=== PATIENT | male | born 1960 | race Caucasian/White ===

== ENCOUNTER 2018-01-01 07:27 | Emergency (ER) | payer OTHER ==
--- NOTE | 2018-01-01 07:50 | C.PDOC ---
History Of Present Illness 57-year-old male, presents to the emergency department with complaints of increasing auditory hallucinations for the past month. Patient states he hasn't taken Seroquel in "many years." He notes that over the past three days, his symptoms have worsened, prompting visit. He denies any suicidal/homicidal ideation. WORSENING AUD HALLUCINATIONS X 3 DAYS. PS INCR FREQ X 1 MO, Time Seen by Provider: 01/01/18 07:40 Chief Complaint (Nursing): Medical Clearance History Per: Patient Current Symptoms Are (Timing): Still Present Severity: Moderate Past Medical History Reviewed: Historical Data, Nursing Documentation, Vital Signs Vital Signs: Last Vital Signs Temp 98.1 F 01/01/18 13:34 Pulse 55 L 01/01/18 13:34 Resp 19 01/01/18 13:34 BP 154/79 H 01/01/18 13:34 Pulse Ox 97 01/01/18 13:34 - Medical History PMH: Depression Family History: States: No Known Family Hx - Social History Hx Tobacco Use: Yes Hx Alcohol Use: Yes Hx Substance Use: No (denies) - Immunization History Hx Tetanus Toxoid Vaccination: No Hx Influenza Vaccination: No Hx Pneumococcal Vaccination: No Review Of Systems Constitutional: Negative for: Fever, Chills Cardiovascular: Negative for: Chest Pain, Palpitations Respiratory: Negative for: Shortness of Breath Neurological: Negative for: Weakness, Headache, Dizziness Psych: Positive for: Other ((+)auditory hallucinations.). Negative for: Anxiety , Depression, Psychosis, Suicidal ideation Physical Exam - Physical Exam Appears: Non-toxic, No Acute Distress Skin: Normal Color, Warm, Dry, No Rash Head: Normacephalic Eye(s): bilateral: PERRL Nose: Normal Oral Mucosa: Moist Lips: Normal Appearing Neck: Normal ROM Cardiovascular: Rhythm Regular, No Murmur Respiratory: Normal Breath Sounds, No Accessory Muscle Use Gastrointestinal/Abdominal: Soft, No Tenderness Extremity: Normal ROM, No Deformity, No Swelling Neurological/Psych: Oriented x3, Normal Speech (No focal deficit) ED Course And Treatment - Laboratory Results Result Diagrams: 01/01/18 09:01 01/01/18 09:01 ECG: Interpreted By Nc ECG Rhythm: Sinus Rhythm ECG Interpretation: Normal Rate From EC O2 Sat by Pulse Oximetry: 98 (RA) Pulse Ox Interpretation: Normal - Radiology CXR: Interpreted by Me CXR Interpretation: Yes: No Acute Disease Progress - Re-Evaluation Re-evaluation Note: 01/01/18 07:50 D/W CRISIS WILL EVAL IN ER 01/01/18 10:22 MED CLEAR FOR PSYCH. EXAM 01/01/18 14:[address] [place] [address] [facility] - Data Reviewed Data Reviewed: Lab, Diagnostic imaging, EKG, Old records Medical Decision Making Medical Decision Making: Impression 57y/o M comes in with worsening auditory hallucinations x3 days Plan: * Crisis evaluation * Reassess and Disposition Disposition Discussed With : alex Counseled Patient/Family Regarding: Studies Performed, Diagnosis - Disposition Disposition: Trans to Other Acute Care Hosp Disposition Time: 14:41 Condition: STABLE Forms: [employer] (Lithuanian) - Clinical Impression Clinical Impression: Schizoaffective disorder - Scribe Statement The provider has reviewed the documentation as recorded by the Scribe (Myron Salmeron) All medical record entries made by the Scribe were at my direction and personally dictated by me. I have reviewed the chart and agree that the record accurately reflects my personal performance of the history, physical exam, medical decision making, and the department course for this patient. I have also personally directed, reviewed, and agree with the discharge instructions and disposition.
[2018-01-01 08:55] LABS: URINE BILIRUBIN NEGATIVE (NEGATIVE); URINE BLOOD NEGATIVE (NEGATIVE); URINE CLARITY Clear (Clear); URINE COLOR Straw (YELLOW); URINE GLUCOSE (UA) NORMAL (Normal); URINE LEUKOCYTE ESTERASE NEG Leu/uL (Negative); URINE PROTEIN NEGATIVE (NEGATIVE); URINE UROBILINOGEN NORMAL mg/dL (0.2-1.0)
[2018-01-01 09:08] LABS: BASO # 0.1 K/uL (0.0-0.2); BASO % 0.7 % (0.0-2.0); EOS # 0.3 K/uL (0.0-0.7); EOS % 3.8 % (0.0-4.0); HEMOGLOBIN 15.2 g/dL (12.0-18.0); LYMPH % 26.3 % (20.0-40.0); MEAN CELL VOLUME 86.5 fL (80.0-94.0); MEAN CORPUSCULAR HEMOGLOBIN 30.3 pg (27.0-31.0); MEAN PLATELET VOLUME 8.7 fL (7.2-11.7); MONO # 0.5 K/uL (0.0-0.8); MONO % 6.3 % (0.0-10.0); NEUT # 4.9 K/uL (1.8-7.0); NEUT % 62.9 % (50.0-75.0); NRBC % 0.1 % (0.0-2.0); RBC 5.01 Mil/uL (4.40-5.90); RED CELL DISTRIBUTION WIDTH 12.7 % (11.5-14.5); WHITE BLOOD COUNT 7.8 K/uL (4.8-10.8)
--- NOTE | 2018-01-01 09:09 | RAD ---
HISTORY: MED CLEAR Detox/Psy COMPARISON: Portable chest 04/15/2014. TECHNIQUE: Chest PA and lateral FINDINGS: LUNGS: No active pulmonary disease. Improved inspiratory volume noted. PLEURA: No significant pleural effusion identified. No pneumothorax apparent. CARDIOVASCULAR: Normal. OSSEOUS STRUCTURES: No significant abnormalities. VISUALIZED UPPER ABDOMEN: Normal. OTHER FINDINGS: None. IMPRESSION: No interval acute cardiopulmonary disease appreciated.
[2018-01-01 09:24] LABS: ALB/GLOB RATIO 1.4 (1.0-2.1); ALBUMIN 4.3 g/dL (3.5-5.0); ALT/SGPT 32 U/L (21-72); AST/SGOT 28 U/L (17-59); BLOOD UREA NITROGEN 15 mg/dL (9-20); CALCIUM 9.6 mg/dl (8.6-10.4); GFR AFRICAN-AMERICAN > 60; GFR NON-AFRICAN AMERICAN > 60
[2018-01-01 09:35] LABS: BARBITURATES, UR NEGATIVE (NEGATIVE); OPIATES, UR NEGATIVE (NEGATIVE); PHENCYCLIDINE, UR NEGATIVE (NEGATIVE)
[2018-01-01 10:21] LABS: BENZODIAZEPINES, UR POSITIVE (NEGATIVE)
[2018-01-01] MEDS ORDERED: Potassium Chloride 20 mEq/15 ml LIQ UD PO STA (14:40)
[2018-01-01 14:42] VITALS: O2SAT 98
[2018-01-01] MEDS ORDERED: Potassium Chloride 20 mEq ER Tab PO STA (14:42)
[2018-01-01] MEDS ORDERED: Potassium Chloride 20 mEq ER Tab PO ONE (14:43)
[2018-01-01 16:22] VITALS: BP 140/78; PULSE 78; RESP 18; TEMP 98
--- NOTE | 2018-01-03 00:50 | CARD ---
APPROVED REPORT EKG Measurement Heart [id number] MN [id number] [id number] <Conclusion> Normal sinus rhythm Possible Left atrial enlargement Nonspecific T wave abnormality Abnormal ECG
== END 2018-01-01 17:02 | disposition short-term general hospital (02) ==
LOC: C.ER 07:27
DX: F25.9 Schizoaffective disorder, unspecified (principal); E87.6 Hypokalemia
CPT/HCPCS: 71046; 80053; 81001; 85025; 93005; 99284; G0480